=== PATIENT | male | born 1970 | race Caucasian/White ===

== ENCOUNTER 2018-03-29 08:55 | Emergency (ER) | payer BC, OTHER ==
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
[2018-03-29] MEDS ORDERED: TORAdol 30 mg Injection IM ONE (09:39)
[2018-03-29] MEDS ORDERED: TORAdol 30 mg Injection ONE (09:52)
[2018-03-29 10:48] VITALS: BP 127/83; PULSE 79; O2SAT 94
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
== END 2018-03-29 11:17 | disposition home or self-care (01) ==
LOC: ED 08:55
DX: S16.1XXA Strain of muscle, fascia and tendon at neck level, initial encounter (principal); M54.6 Pain in thoracic spine; M54.2 Cervicalgia; R51 Headache; V89.2XXA Person injured in unspecified motor-vehicle accident, traffic, initial encounter; Y92.413 State road as the place of occurrence of the external cause; Y93.29 Activity, other involving ice and snow
CPT/HCPCS: 72040; 72072; 96372; 99284; J1885

== ENCOUNTER 2018-11-18 06:30 | Day surgery (SDC) | payer BC ==
[2018-11-18] MEDS ORDERED: Lactated Ringers 1,000 ML IV ONE ×2 (06:57→08:53)
[2018-11-18] MEDS ORDERED: Lactated Ringers 1,000 ML IV SCH (07:00)
[2018-11-18] MEDS ORDERED: DIPRIVAN 200 MG/20 ML IV ONE ×3 (07:57→08:18)
[2018-11-18] MEDS ORDERED: Ketamine HCl 50 MG/ML ONE (07:57)
[2018-11-18] MEDS ORDERED: PHENYLEPHRINE HCL ONE (08:16)
[2018-11-18 09:09] VITALS: O2SAT 98
[2018-11-18 09:32] VITALS: BP 114/65; PULSE 59
--- NOTE | 2018-11-18 11:30 | OP ---
SURGERY DATE: 11/18/18 SURGERY TIME: 0800 PREOPERATIVE DIAGNOSIS: 1. PERSISTENT GASTROESOPHAGEAL REFLUX DISEASE. 2. FOLLOW-UP HISTORY OF COLON POLYPS. POSTOPERATIVE DIAGNOSIS: 1. DUODENITIS. 2. SMALL HIATAL HERNIA. 3. COLON POLYPS X 7. PROCEDURE: 1. EGD. 2. Colonoscopy. SPECIMENS: 1. There were 2 cold forceps biopsies from the duodenum. 2. One hot snare polypectomy from the splenic flexure. 3. Six hot forceps polypectomies from the sigmoid colon. ESTIMATED BLOOD LOSS: Minimal. SURGEON: Dr. Adam Jackson. ANESTHESIA: MAC by Kelechi Kwong CRNA. DESCRIPTION OF PROCEDURE: After informed written consent was obtained, the patient was taken to the endoscopy suite. He underwent monitored anesthesia and a bite block was inserted. The endoscope was inserted in the posterior oropharynx and under direct visualization, the esophagus was traversed. There was a normal mucosal appearance free of lesions or defects. Upon entry in the stomach, there was normal rugated gastric mucosa. There were no obvious ulcerations or bleeding. The pylorus was traversed and there were some mild duodenitis type changes in the proximal duodenum. Two cold forceps biopsies were taken from account representative areas with minimal bleeding. Upon withdrawal from the pylorus, retroflexion revealed a small hiatal hernia. No other abnormalities were appreciable. Upon removal of the scope, again, the esophageal mucosa had a normal appearance. The scope was removed and the scopes were switched. A digital rectal exam showed normal sphincter tone. The endoscope was then inserted in the rectum and sequentially the entire colonic mucosa was traversed. The level of the cecum was reached and verified with direct visualization of the ileocecal valve. There was broad based polyp in the splenic flexure which was grasped with a snare and cautery was used to ligate the base. It was retrieved in a trap. Showed good removal of the lesion and good hemostasis following removal. Upon further withdrawal, there were small sessile polyps in the sigmoid which were all removed with the hot forceps in their entirety with complete removal of the lesions and good hemostasis. Prior to withdrawal, retroflexion showed no internal lesions. The scope was removed. The patient was transferred to the recovery room in good condition. He has been advised to hold his aspirin regimen for the next week, continue his proton pump inhibitor, and follow-up on pathology results next week.
== END 2018-11-18 09:38 | disposition home or self-care (01) ==
LOC: SDC 06:30
PROVIDERS: ATTEND Family Medicine
DX: K29.80 Duodenitis without bleeding (principal); D12.3 Benign neoplasm of transverse colon; D12.5 Benign neoplasm of sigmoid colon; K44.9 Diaphragmatic hernia without obstruction or gangrene; Z09 Encounter for follow-up examination after completed treatment for conditions other than malignant neoplasm; Z86.010 Personal history of colon polyps
CPT/HCPCS: 88305; J2370; J2704